=== PATIENT | female | born 2000 | race Caucasian/White ===

== ENCOUNTER 2024-06-09 18:47 | Emergency (ER) | payer OTHER ==
[~2024-06-09] VITALS: Ht 160 cm; Wt 63.6 kg
[2024-06-09 18:54] VITALS: BP 117/84; PULSE 82; RESP 16; TEMP 98.1; O2SAT 100
== END 2024-06-09 21:32 | disposition left against medical advice (07) ==
LOC: EMS 18:47
DX: M79.645 Pain in left finger(s) (principal); Z53.21 Procedure and treatment not carried out due to patient leaving prior to being seen by health care provider